=== PATIENT | female | born 1965 | race Caucasian/White ===

== ENCOUNTER 2020-07-23 17:55 | Emergency (ER) | payer OTHER ==
[2020-07-23 18:04] VITALS: BP 157/97; PULSE 85; TEMP 98.9; BMI 27.4
[2020-07-23] MEDS ORDERED: CEPHALEXIN MONOHYDRATE 500 MG CAPSULE (UD) PO ONE (19:32)
[2020-07-23] MEDS ORDERED: CEPHALEXIN MONOHYDRATE 500 MG CAPSULE (UD) ONE (19:33)
== END 2020-07-23 19:40 | disposition home or self-care (01) ==
LOC: FER 17:55
DX: S61.304A Unspecified open wound of right ring finger with damage to nail, initial encounter (principal)
CPT/HCPCS: 99283-25